=== PATIENT | male | born 1990 | race Caucasian/White ===

== ENCOUNTER 2017-11-23 13:49 | Day surgery (SDC) | payer OTHER ==
[~2017-11-23 13:49] MED LIST: CEFAZOLIN 1 GM INJ; CEFAZOLIN 2 GM/50 ML (PMX) 50 ML IVPB; GLYCOPYRROLATE 0.4 MG INJ; LACTATED RINGER'S 1,000 ML IV*; NEOSTIGMINE 3 MG/3 ML SYRINGE; ROCURONIUM 50 MG INJ
[2017-11-23] MEDS ORDERED: PROPOFOL 20 ML (16:15)
[2017-11-23] MEDS ORDERED: FLUMAZENIL 0.5 MG INJ (16:15)
[2017-11-23] MEDS ORDERED: METOCLOPRAMIDE 10 MG INJ (16:16)
[2017-11-23] MEDS ORDERED: ONDANSETRON 4 MG INJ (16:16)
[2017-11-23] MEDS ORDERED: MIDAZOLAM 1 MG/ML 2 ML INJ (16:16)
[2017-11-23] MEDS: BUPIVACAINE 0.5% (SDV) 30 ML INJ (16:52)
[2017-11-23] MEDS: LIDOCAINE 1%/EPI 30 ML INJ (16:52)
[2017-11-23] MEDS ORDERED: ONDANSETRON 4 MG INJ IV (17:00)
[2017-11-23] MEDS ORDERED: HYDROmorphONE 1 MG/5 ML IV SYRINGE IV ×3 (17:00)
[2017-11-23] MEDS ORDERED: MEPERIDINE 25 MG INJ IV (17:00)
[2017-11-23] MEDS ORDERED: DIPHENHYDRAMINE 50 MG INJ IV (17:00)
[2017-11-23] MEDS ORDERED: OXYCODONE/ACETAMINOPHEN (5/325) TAB PO ×2 (17:00)
[2017-11-23] MEDS ORDERED: KETOROLAC 30 MG INJ (17:01)
[2017-11-23] MEDS ORDERED: MEPERIDINE /PF (100 MG/2 ML) AMPULE (17:20)
== END 2017-11-23 19:07 | disposition home or self-care (01) ==
LOC: SDS 13:49
DX: K60.3 Anal fistula (principal)
CPT/HCPCS: 46270; 88304